=== PATIENT | female | born 1980 | race Caucasian/White ===

== ENCOUNTER 2016-11-01 12:52 | Emergency (ER) | payer BC ==
--- NOTE | 2016-11-01 13:10 | EDPHY ---
H & P Stated Complaint: Dizzy, lightheaded, SOB. Time Seen by Provider: 11/01/16 13:00 HPI/ROS: Chief complaint: Lightheaded History of present illness: This is a 35-year-old female who presents to the emergency department for evaluation of lightheadedness. Patient reports the onset of symptoms today. She has had associated chest discomfort and trouble breathing. She reports the onset of symptoms earlier today. She denies specific precipitating factors. She has had similar symptoms on and off for the last few weeks. She does report associated left leg discomfort behind the thigh. She denies other associated signs or symptoms including no fevers or cold symptoms, no trauma. No other complaints. She is visiting from [place]. Review of systems: A 10 point review of systems was obtained and other than described above was negative - Personal History LMP (Females 10-55): 8-14 Days Ago Current Tetanus/Diphtheria Vaccine: Yes Current Tetanus Diphtheria and Acellular Pertussis (TDAP): Yes Tetanus Vaccine Date: 2010 - Medical/Surgical History Hx Asthma: No Hx Chronic Respiratory Disease: No Hx Diabetes: No Hx Cardiac Disease: No Hx Renal Disease: No Hx Cirrhosis: No Hx Alcoholism: No Hx HIV/AIDS: No Hx Splenectomy or Spleen Trauma: No Other PMH: GIST gastric Cancer-gastrectomy. - Family History Significant Family History: Other - Social History Smoking Status: Never smoked - Physical Exam Exam: General Appearance: Alert, nontoxic. Eyes: Pupils equal and round no pallor or injection. ENT, Mouth: Mucous membranes moist. Respiratory: There are no retractions, lungs are clear to auscultation. Cardiovascular: Regular rate and rhythm. Gastrointestinal: Abdomen is soft and nontender, no masses, bowel sounds normal. Neurological: Alert and oriented x4. Cranial nerves 2-12 grossly intact. Strength and sensation intact and symmetrical. Ambulating well. Skin: Warm and dry, no rashes. Musculoskeletal: Neck is supple nontender. Extremities are symmetrical, full range of motion. Psychiatric: Patient is oriented X 3, there is no agitation. Constitutional: Initial Vital Signs Temperature (C) 36.7 C 11/01/16 12:54 Heart Rate 81 11/01/16 12:54 Respiratory Rate 16 11/01/16 12:54 Blood Pressure 125/87 H 11/01/16 12:54 O2 Sat (%) 96 11/01/16 12:54 O2 Delivery Mode Room Air Allergies/Adverse Reactions: ciprofloxacin [From Cipro] Allergy (Severe, Verified 11/01/16 12:59) Anaphylaxis Quinolones Allergy (Severe, Verified 11/01/16 12:59) Swelling/neck,face,throat Home Medications: Medication Instructions Recorded Lansoprazole 11/01/16 Multi-Day Vitamins 11/01/16 Medical Decision Making ED Course/Re-evaluation: Patient discussed with my secondary supervising physician Dr. Pedro Douglas. Patient presents to the emergency department for lightheadedness with associated signs and symptoms as described above. On presentation patient is nontoxic. She is afebrile and vital signs are stable. She has an unremarkable physical exam. CBC, chemistry, D-dimer, troponin and all negative. EKG unremarkable per Dr. Douglas. Chest x-ray does show a right middle lobe lung nodule but is otherwise unremarkable. At this time I do not appreciate evidence for the need for inpatient management. She has been IV hydrated and is feeling better. She will be discharged. She is asked to follow up with her primary care doctor for continued evaluation and care of both her symptoms as this is an ongoing issue, I further had a lengthy discussion with her on the importance of following up on the lesion seen in her right middle lobe. Home care is discussed. Return precautions are given. Patient voiced understanding and agreement with plan. Differential Diagnosis: Included but not limited to dehydration, anemia, electrolyte disturbances, cardiac dysrhythmia, ACS, PE, an associated complications, malignancy - Data Points Laboratory Results: Laboratory Results 11/01/16 13:10 11/01/16 13:10 11/01/16 11/01/16 11/01/16 13:10 13:10 13:10 WBC RBC Hgb Hct MCV MCH MCHC RDW Plt Count MPV Neut % (Auto) Lymph % (Auto) Armstrong % (Auto) Eos % (Auto) Baso % (Auto) Nucleat RBC Rel Count Absolute Neuts (auto) Absolute Lymphs (auto) Absolute Monos (auto) Absolute Eos (auto) Absolute Basos (auto) Absolute Nucleated RBC Immature Gran % Immature Gran # D-Dimer < 0.27 ug/mLFEU ug/mLFEU (0.00-0.50) Sodium 142 mEq/L mEq/L (134-144) Potassium 3.3 mEq/L L mEq/L (3.5-5.2) Chloride 101 mEq/L mEq/L (97-110) Carbon Dioxide 28 mEq/l mEq/l (22-31) Anion Gap 13 mEq/L mEq/L (8-16) BUN 13 mg/dL mg/dL (7-23) Creatinine 0.6 mg/dL mg/dL (0.6-1.0) Estimated GFR > 60 Glucose 79 mg/dL mg/dL (70-100) Calcium 9.8 mg/dL mg/dL (8.5-10.4) Troponin I < 0.012 ng/mL ng/mL (0-0.034) Beta HCG, Qual NEGATIVE 11/01/16 13:10 WBC 5.48 10^3/uL 10^3/uL (3.80-9.50) RBC 4.45 10^6/uL 10^6/uL (4.18-5.33) Hgb 12.4 g/dL L g/dL (12.6-16.3) Hct 37.2 % L % (38.0-47.0) MCV 83.6 fL fL (81.5-99.8) MCH 27.9 pg pg (27.9-34.1) MCHC 33.3 g/dL g/dL (32.4-36.7) RDW 13.7 % % (11.5-15.2) Plt Count 331 10^3/uL 10^3/uL (150-400) MPV 10.4 fL fL (8.7-11.7) Neut % (Auto) 55.9 % % (39.3-74.2) Lymph % (Auto) 30.5 % % (15.0-45.0) Armstrong % (Auto) 9.9 % % (4.5-13.0) Eos % (Auto) 2.0 % % (0.6-7.6) Baso % (Auto) 1.3 % % (0.3-1.7) Nucleat RBC Rel Count 0.0 % % (0.0-0.2) Absolute Neuts (auto) 3.07 10^3/uL 10^3/uL (1.70-6.50) Absolute Lymphs (auto) 1.67 10^3/uL 10^3/uL (1.00-3.00) Absolute Monos (auto) 0.54 10^3/uL 10^3/uL (0.30-0.80) Absolute Eos (auto) 0.11 10^3/uL 10^3/uL (0.03-0.40) Absolute Basos (auto) 0.07 10^3/uL 10^3/uL (0.02-0.10) Absolute Nucleated RBC 0.00 10^3/uL 10^3/uL (0-0.01) Immature Gran % 0.4 % % (0.0-1.1) Immature Gran # 0.02 10^3/uL 10^3/uL (0.00-0.10) D-Dimer Sodium Potassium Chloride Carbon Dioxide Anion Gap BUN Creatinine Estimated GFR Glucose Calcium Troponin I Beta HCG, Qual Departure - Departure Disposition: Home, Routine, Self-Care Clinical Impression: Lightheaded Condition: Good Instructions: Lightheadedness (ED) Additional Instructions: If symptoms worsen or new symptoms develop return to the emergency room for recheck Please follow up with your primary care doctor for continued evaluation and care when you return home Please follow-up with your doctor as soon as possible for recheck of the lesion seen in your right middle lung without fail Referrals: NONE *PRIMARY CARE P,. [Unknown] - As per Instructions [facility],. [Clinic] - As per Instructions
--- NOTE | 2016-11-01 13:12 | CPEKG ---
Heart Rate: 80 RR Interval: 750 P-R Interval: 124 QRSD Interval: 92 QT Interval: 396 QTC Interval: 457 P Assaria: 24 QRS Assaria: 69 T Wave Assaria: 39 EKG Severity - NORMAL ECG - EKG Impression: SINUS RHYTHM Electronically Signed By: Pedro Douglas 01-Nov-2016 14:37:24
[2016-11-01 13:21] LABS: % IMMATURE GRANULYOCYTES 0.4 % (0.0-1.1); ABSOLUTE IMMATURE GRANULOCYTES 0.02 10^3/uL (0.00-0.10); ADD DIFF? NO; ADD MORPH? NO; ADD SCAN? NO; ATYPICAL LYMPHOCYTE FLAG 30 (0-99); FRAGMENT RBC FLAG 0 (0-99); HEMATOCRIT 37.2 % (38.0-47.0); HEMOGLOBIN 12.4 g/dL (12.6-16.3); LEFT SHIFT FLG 0 (0-99); LIPEMIA HEMOLYSIS FLAG 80 (0-99); MEAN CELL HEMOGLOBIN 27.9 pg (27.9-34.1); MEAN CELL HEMOGLOBIN CONCENTR. 33.3 g/dL (32.4-36.7); MEAN CELL VOLUME 83.6 fL (81.5-99.8); MEAN PLATELET VOLUME 10.4 fL (8.7-11.7); PLATELET CLUMPS FLAG 0 (0-99); PLATELET COUNT 331 10^3/uL (150-400); RED BLOOD CELL COUNT 4.45 10^6/uL (4.18-5.33); RED CELL DISTRIBUTION WIDTH 13.7 % (11.5-15.2)
[2016-11-01 13:34] LABS: ANION GAP 13 mEq/L (8-16); CALCIUM 9.8 mg/dL (8.5-10.4); CARBON DIOXIDE 28 mEq/l (22-31); CHLORIDE 101 mEq/L (97-110); CREATININE 0.6 mg/dL (0.6-1.0); GLOMERULAR FILTRATION RATE > 60; GLUCOSE 79 mg/dL (70-100); POTASSIUM 3.3 mEq/L (3.5-5.2); SODIUM 142 mEq/L (134-144)
[2016-11-01 13:45] LABS: TROPONIN I < 0.012 ng/mL (0-0.034)
[2016-11-01 15:27] VITALS: BP 118/85; PULSE 86; RESP 20; TEMP 97.7; O2SAT 95
== END 2016-11-01 15:28 | disposition home or self-care (01) ==
DX: R42 Dizziness and giddiness (principal); Z85.028 Personal history of other malignant neoplasm of stomach